=== PATIENT | male | born 2000 | race Caucasian/White ===

== ENCOUNTER 2024-11-25 06:48 | Emergency (ER) | payer OTHER, SELFPAY ==
[2024-11-25 07:08] VITALS: BP 155/93; PULSE 87; RESP 18; TEMP 36.8; O2SAT 98; BMI 26.6
--- NOTE | 2024-11-25 08:02 | ED_ITS ---
HPI - Animal Bite General: Chief Complaint: Animal Bite Stated Complaint: cat bite on R hand Time Seen by Provider: 11/25/24 06:55 History of Present Illness: 24-year-old male presents emergency room 5 days after a cat bite. He was bit on his right hand 5 days ago. The cat was a household pet that was kept indoors but had never been vaccinated. After the bite the cat was euthanized by the patient but not tested. Cat is not available for observation or testing at this point. He did see his primary care doctor and was given antibiotic for the bite he was given a shot the first day but he has not followed up with the oral antibiotics he was prescribed. He does have some swelling on the dorsum of his right hand. No pain or swelling elsewhere in the arm. Associated symptoms: Deny chills or fever(s) Related Data Previous Rx's ?Medication ?Instructions ?Recorded prednisone 20 mg tablet 40 mg (2 x 20 mg) PO DAILY 5 days 06/22/23 #10 tabs Allergies Allergy/AdvReac Type Severity Reaction Status Date / Time No Known Allergies Allergy Unverified 06/22/23 14:07 Review of Systems Const: Denies: fever(s) or chills Skin/Breast: Denies: rash Physical Exam Const: COMMON NORMALS: no acute distress GENERAL APPEARANCE: cooperative and comfortable ORIENTATION/CONSCIOUSNESS: Yes awake, Yes oriented to person, Yes oriented to place and Yes oriented to time HENMT: COMMON NORMALS: normocephalic, atraumatic and hearing grossly normal bilaterally HEAD & SCALP: normocephalic and atraumatic Resp: COMMON NORMALS: normal respiratory effort, No retractions, No use of accessory muscles and clear to auscultation bilaterally AUSCULTATION: clear to auscultation bilaterally Cardio: COMMON NORMALS: regular rate, regular rhythm and No murmurs present (Cardio) RATE: regular rate RHYTHM: regular rhythm Extremity: OTHER: Right hand moderate swelling the dorsum of the hand overlying the second third and distal metacarpals. No skin induration no open wounds or redness is a few healing superficial puncture wound with very small. No epitrochlear or axillary lymph nodes no lymphangitic streaking Neuro: SENSORIUM/ORIENTATION: Yes oriented to person, Yes oriented to place and Yes oriented to time Course Vital Signs: Vital signs: Vital Signs Temperature 98.2 F 11/25/24 07:08 Pulse Rate 87 11/25/24 07:08 Respiratory Rate 18 11/25/24 07:08 Blood Pressure 155/93 11/25/24 07:08 Pulse Oximetry 98 11/25/24 07:08 Oxygen Delivery Me thod Room Air 11/25/24 07:08 MDM - Animal Bite Medical Decision Making Encourage patient to get the oral antibiotics and complete the full course that was prescribed. Patient [facility]. Given instructions on vaccine series. No radiology studies performed this visit Discharge Plan Discharge Patient Disposition: Home Clinical Impression: Cat bite, Need for post exposure prophylaxis for rabies Condition: Stable Prescriptions: No Action prednisone 20 mg tablet 40 mg PO DAILY 5 Days Qty: 10 0RF Discharge Orders: Discharge ED (Routine); Ordered 11/25/24 Ordered By: Nomi Torres Discharge Diet: Usual diet Discharge Activity: Resume usual activity Patient Instructions: Opioid Safety, Pain Management, Patient Portal & Billy Instructions Activity Restrictions/Additional Instructions: Thank you for choosing [facility] for your healthcare needs today. It is very important that you follow up as instructed or that you return to the Emergency Department should you have concerns or if your condition changes or worsens in any way. Emergency department visits are focused on emergent conditions, in some cases you may require further evaluation on an outpatient basis. You were seen in the emergency room after a cat bite. Since the cat is no longer available for observation or testing is recommended that you have the rabies immunoglobulin and vaccine series. Immunoglobulin was given to you in the emergency room the vaccine series is a total of 5 shots. Along with your discharge instructions you were given the dates when the neck shots will be due. These are done at the infusion center. Since you were bitten it is important for you to complete the course of antibiotics you are previously prescribed (Please note that included in your discharge packet is information concerning opioid safety and pain management. 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
[2024-11-25] MEDS: rabies IG 300 unit/mL SDV 1 mL 1620 UNIT IM (08:15)
[2024-11-25] MEDS: rabies vaccine 2.5 unit SDV IM (08:17)
== END 2024-11-25 08:25 | disposition home or self-care (01) ==
PROVIDERS: Emergency Provider Family Medicine
DX: S61.451A Open bite of right hand, initial encounter (principal); W55.01XA Bitten by cat, initial encounter; Z20.3 Contact with and (suspected) exposure to rabies; Z29.14 Encounter for prophylactic rabies immune globulin
CPT/HCPCS: 90375; 90471; 90675; 96372; 99283

== ENCOUNTER 2024-12-07 08:16 | Oncology outpatient (recurring) (ONCR) | payer OTHER, SELFPAY ==
[2024-11-30] MEDS: rabies vaccine 2.5 unit SDV IM (09:08)
[2024-12-07] MEDS: rabies vaccine 2.5 unit SDV IM (08:23)
== END 2024-12-08 23:59 | disposition home or self-care (01) ==
PROVIDERS: Visit Provider Family Medicine
DX: Z53.9 Procedure and treatment not carried out, unspecified reason (principal); Z23 Encounter for immunization; Z20.3 Contact with and (suspected) exposure to rabies; S61.451A Open bite of right hand, initial encounter; W55.01XA Bitten by cat, initial encounter
CPT/HCPCS: 90471; 90675

== ENCOUNTER 2024-12-14 07:58 | Oncology outpatient (recurring) (ONCR) | payer OTHER, SELFPAY ==
[2024-12-14] MEDS: rabies vaccine 2.5 unit SDV IM (08:14)
== END 2025-01-08 23:59 | disposition home or self-care (01) ==
LOC: ONCMED 07:59
PROVIDERS: Visit Provider Family Medicine
DX: Z23 Encounter for immunization (principal); Z20.3 Contact with and (suspected) exposure to rabies; T14.8XXA Other injury of unspecified body region, initial encounter; W55.01XA Bitten by cat, initial encounter
CPT/HCPCS: 90471; 90675